=== PATIENT | female | born 1945 | race Caucasian/White ===

== ENCOUNTER 2016-12-11 14:30 | Outpatient (CLI) | payer MEDICARE ==
[2016-12-11 14:51] LABS: #Basophils 0.1 thou/uL (0.0-0.2); #Eosinphils 0.4 thou/uL (0.0-0.7); #Lymphocytes 3.8 thou/uL (1.20-3.40); #Monocytes 0.8 thou/uL (0.11-0.59); #Neutrophils 4.9 thou/uL (1.40-6.50); %Eosinophils 3.7 % (0.0-10.0); %Lymphocytes 37.9 % (21.0-51.0); %Monocytes 8.2 % (0.0-10.0); %Neutrophils 49.2 % (42.0-75.0); Hemoglobin 14.3 g/dL (12.0-16.0); Mean Corpuscular HGB CONC 34.1 g/dL (32.0-36.0); Mean Corpuscular Hemoglobin 31.9 pg (27.0-31.0); Mean Corpuscular Volume 93.7 fl (81.0-99.0); Mean Platelet Volume 7.7 fL (7.4-10.4); Platelet Count 306 thou/uL (130-400); RBC Distribution Width 12.2 % (11.5-14.5); Red Blood Cell (RBC) Count 4.48 mill/uL (4.20-5.40)
== END 2016-12-11 14:31 | disposition home or self-care (01) ==
LOC: MADLAB 14:30
PROVIDERS: ATTEND Internal Medicine Cardiovascular Disease
DX: I48.0 Paroxysmal atrial fibrillation (principal)
CPT/HCPCS: 36415; 85025

== ENCOUNTER 2017-08-10 11:28 | Emergency (ER) | payer OTHER, MEDICARE ==
[~2017-08-10 11:28] MED LIST: Albuterol Sulfate 2.5 mg/3 ml Neb ONE
--- NOTE | 2017-08-10 11:50 | RAD ---
ONE VIEW CHEST: COMPARISON: 03/19/17. HISTORY: Dyspnea. FINDINGS: Persistent pleural and parenchymal changes in the left hemithorax which obscure the left heart border . There is overall diminished lung volume in the left hemithorax. Compensatory mild hyperinflation in the right lung. No pneumothorax. IMPRESSION: Postsurgical changes of diminished left lung volume. Persistent opacification of left lung base. POS: [facility]
[2017-08-10] MEDS ORDERED: Albuterol Sulfate 1.25 MG/3 ML NEB ONE (11:58)
[2017-08-10] MEDS ORDERED: Furosemide 40 MG/4 ML VIAL ONE ×2 (11:58→13:44)
[2017-08-10 12:07] LABS: #Basophils 0.1 thou/uL (0.0-0.2); #Eosinphils 0.3 thou/uL (0.0-0.7); #Lymphocytes 3.5 thou/uL (1.20-3.40); #Monocytes 0.9 thou/uL (0.11-0.59); #Neutrophils 6.8 thou/uL (1.40-6.50); %Basophils 0.6 % (0.0-1.0); %Lymphocytes 30.4 % (21.0-51.0); %Monocytes 7.5 % (0.0-10.0); %Neutrophils 58.5 % (42.0-75.0); Hemoglobin 13.4 g/dL (12.0-16.0); Mean Corpuscular HGB CONC 32.9 g/dL (32.0-36.0); Mean Corpuscular Hemoglobin 31.7 pg (27.0-31.0); Mean Corpuscular Volume 96.3 fl (81.0-99.0); Mean Platelet Volume 7.7 fL (7.4-10.4); Platelet Count 272 thou/uL (130-400); RBC Distribution Width 13.4 % (11.5-14.5); Red Blood Cell (RBC) Count 4.22 mill/uL (4.20-5.40); White Blood Cell (WBC) Count 11.6 thou/uL (4.8-10.8)
[2017-08-10 12:19] LABS: INR-International Normal Ratio 1.3; PTT 30.9 SEC (22.9-36.1); Prothrombin Time 15.9 SEC (12.0-14.7)
[2017-08-10 12:21] LABS: D-Dimer Test Less than 0.27 *mcg/mL (0.27-0.43)
[2017-08-10 12:28] LABS: ALT (SGPT) 14 U/L (8-55); AST (SGOT) 13 U/L (5-34); Albumin 3.7 g/dL (3.4-4.8); Alkaline Phosphatase 92 U/L (40-150); Anion Gap 13 mmol/L (10-20); BUN (Urea Nitrogen) 20 mg/dL (9.8-20.1); Bilirubin, Total 0.5 mg/dL (0.2-1.2); CK (CPK) 36 U/L (29-168); Calc. Creatinine Clearance 0 mL/min (70-130); Calcium 9.5 mg/dL (7.8-10.44); Carbon Dioxide 27 mmol/L (23-31); Chloride 104 mmol/L (98-107); Estimated GFR-MDRD 64; Globulin 2.7 g/dL (2.4-3.5); Glucose 101 mg/dL (83-110); Potassium 4.3 mmol/L (3.5-5.1); Protein, Total 6.4 g/dL (6.0-8.3); Sodium 140 mmol/L (136-145)
[2017-08-10 12:32] LABS: Bilirubin Negative (Negative); Blood, Urine Negative (Negative); Clarity Clear (Clear); Glucose, Urine (Dipstick) Negative (Negative); Leukocyte Negative (Negative); Nitrite Negative (Negative); Protein, Urine (Dipstick) Negative (Neg-Trace); Urobilinogen 0.2 mg/dL (0.2-1.0)
[2017-08-10 12:54] LABS: CKMB 1.2 ng/mL (0-6.6); Troponin I Less than 0.010 ng/mL (< 0.028)
[2017-08-10] MEDS ORDERED: methylPREDNISolone Sod Succ/PF 125 MG/2 ML VIAL ONE (13:44)
== END 2017-08-10 14:16 | disposition home or self-care (01) ==
LOC: MADERS 11:28
DX: J81.0 Acute pulmonary edema (principal); J44.1 Chronic obstructive pulmonary disease with (acute) exacerbation; I25.10 Atherosclerotic heart disease of native coronary artery without angina pectoris; I48.91 Unspecified atrial fibrillation; I10 Essential (primary) hypertension; Z79.899 Other long term (current) drug therapy; Z79.82 Long term (current) use of aspirin
CPT/HCPCS: 71045; 80053; 81003; 82553; 83880; 84484; 85025; 85379; 85610; 85730; 93005; 96374; 96375; 96376; J1940; J2930; J7611

== ENCOUNTER 2017-09-07 10:45 | Emergency (ER) | payer MEDICARE ==
[~2017-09-07 10:45] MED LIST changes: -Albuterol Sulfate 2.5 mg/3 ml Neb ONE; +Sodium Chloride 0.9% 100 ML BAG ONE
[2017-09-07] MEDS ORDERED: Furosemide 40 MG/4 ML VIAL ONE (11:59)
[2017-09-07 12:26] LABS: #Basophils 0.1 thou/uL (0.0-0.2); #Eosinphils 0.3 thou/uL (0.0-0.7); #Lymphocytes 2.1 thou/uL (1.20-3.40); #Monocytes 0.9 thou/uL (0.11-0.59); #Neutrophils 4.7 thou/uL (1.40-6.50); %Basophils 0.9 % (0.0-1.0); %Eosinophils 3.3 % (0.0-10.0); %Lymphocytes 25.8 % (21.0-51.0); %Monocytes 11.7 % (0.0-10.0); %Neutrophils 58.2 % (42.0-75.0); Hemoglobin 12.7 g/dL (12.0-16.0); Mean Corpuscular HGB CONC 32.7 g/dL (32.0-36.0); Mean Corpuscular Hemoglobin 31.6 pg (27.0-31.0); Mean Corpuscular Volume 96.7 fl (81.0-99.0); Mean Platelet Volume 6.8 fL (7.4-10.4); Platelet Count 247 thou/uL (130-400); RBC Distribution Width 13.8 % (11.5-14.5); Red Blood Cell (RBC) Count 4.02 mill/uL (4.20-5.40)
[2017-09-07 12:33] LABS: INR-International Normal Ratio 1.3; PTT 34.5 SEC (22.9-36.1); Prothrombin Time 16.2 SEC (12.0-14.7)
--- NOTE | 2017-09-07 12:35 | RAD ---
PORTABLE AP CHEST X-RAY: 09/07/2017 HISTORY: Pneumonia. CHF. COMPARISON: 08/10/2017 FINDINGS: Again noted is generalized volume loss in the left hemithorax compared to the right. Pleural and par enchymal changes are again seen at the left lung base, which, given differences in technique, are pro bably similar to the prior exam. Pneumonia with small left pleural effusion is a possibility, althou gh findings could be related to chronic lung changes. A neoplastic process cannot be entirely exclud ed. There are post surgical changes of the left hemithorax. The right lung is clear. The cardiac s ilhouette is mostly obscured. IMPRESSION: Post surgical changes, left hemithorax, with generalized volume loss, similar to the prior study. In addition, there are overall stable pleural and parenchymal changes at the left lung base, which, aga in, may be related to an infectious process and associated left pleural effusion. Volume loss and/or chronic lung change is also a possibility. However, continued followup to ensure resolution is ramonita mmended. POS: [facility]
[2017-09-07 12:41] LABS: ALT (SGPT) 11 U/L (8-55); AST (SGOT) 11 U/L (5-34); Albumin 3.6 g/dL (3.4-4.8); Alkaline Phosphatase 85 U/L (40-150); Anion Gap 14 mmol/L (10-20); BUN (Urea Nitrogen) 19 mg/dL (9.8-20.1); Bilirubin, Total 0.6 mg/dL (0.2-1.2); CK (CPK) 22 U/L (29-168); Calc. Creatinine Clearance 0 mL/min (70-130); Calcium 9.2 mg/dL (7.8-10.44); Carbon Dioxide 28 mmol/L (23-31); Chloride 104 mmol/L (98-107); Estimated GFR-MDRD 52; Globulin 2.6 g/dL (2.4-3.5); Glucose 97 mg/dL (83-110); Potassium 4.4 mmol/L (3.5-5.1); Protein, Total 6.2 g/dL (6.0-8.3); Sodium 142 mmol/L (136-145)
[2017-09-07 12:45] LABS: CKMB 0.8 ng/mL (0-6.6); Troponin I Less than 0.010 ng/mL (< 0.028)
[2017-09-07] MEDS ORDERED: MORPHINE 10 MG/ML SYRINGE ONE (13:57)
[2017-09-07] MEDS ORDERED: Ondansetron HCl/PF 4 MG/2 ML Vial ONE (13:58)
[2017-09-07] MEDS ORDERED: D5 1/2 NS w/20 mEq KCL 1,000 ML ONE (13:58)
--- NOTE | 2017-09-07 15:32 | CT ---
CT CHEST WITHOUT CONTRAST: Date: 09/07/17 HISTORY: Abnormal chest x-ray. History of nephrectomy. Concern for mass. FINDINGS: Absence of IV contrast reduces the sensitivity of exam, particularly for evaluation of solid organs a nd bowel. There is volume loss in the left hemithorax. There is interstitial thickening in the left m id and lower lung zones. A 2.7 cm spiculated nodule is seen in the left upper lung. Focal consolidati on versus mass is seen in the posterior aspect of the left upper lung. This measures about 3.0 cm. Th ere are multiple nodules in the right lung, the largest measuring about 1.5 cm and has a slightly spi culated appearance and is located in the right upper lobe close to the apex. There is atelectatic sampson nge in the right middle lobe. A small hiatal hernia is present. There is a 1.4 cm cyst in the visualized portions of the liver. The re is atrophy of the left kidney. Vascular calcifications are present without evidence of aneurysmal dilatation of the thoracic aorta. No pleural or pericardial effusions are identified. IMPRESSION: The possibility of metastatic disease should be considered. Further evaluation with PET scanning woul d be helpful. POS: [facility]
[2017-09-07] MEDS ORDERED: cefTRIAXone\\ROCEPHIN 2 GM VIAL ONE (16:57)
== END 2017-09-07 17:16 | disposition short-term general hospital (02) ==
LOC: MADERS 10:45
DX: J18.9 Pneumonia, unspecified organism (principal); C34.92 Malignant neoplasm of unspecified part of left bronchus or lung; C34.91 Malignant neoplasm of unspecified part of right bronchus or lung; I25.10 Atherosclerotic heart disease of native coronary artery without angina pectoris; I48.91 Unspecified atrial fibrillation; I10 Essential (primary) hypertension; Z79.82 Long term (current) use of aspirin; Z79.899 Other long term (current) drug therapy; Z85.43 Personal history of malignant neoplasm of ovary
CPT/HCPCS: 36415; 51702; 71045; 71250; 80053; 82553; 83880; 84484; 85025; 85610; 85730; 87040; 87081; 87086; 87430; 93005; 94760; 96365; 96375; J0696; J1940; J2270; J2405; J7050

== ENCOUNTER 2018-12-08 14:52 | Outpatient (CLI) | payer MEDICARE ==
--- NOTE | 2018-12-08 15:25 | RAD ---
XR Chest Pa Lat STANDARD HISTORY: Chest pain COMPARISON: 11/30/2018 FINDINGS: Postoperative changes and volume loss in the left hemithorax is stable. There is mediastina l shift to the left. The right lung is well-aerated with stable chronic changes in the right upper lung. IMPRESSION: Stable exam. No acute process.
[2018-12-08 16:23] LABS: Anion Gap 14 mmol/L (10-20); BUN (Urea Nitrogen) 24 mg/dL (9.8-20.1); Calc. Creatinine Clearance 0 mL/min (70-130); Calcium 9.7 mg/dL (7.8-10.44); Carbon Dioxide 26 mmol/L (23-31); Chloride 103 mmol/L (98-107); Estimated GFR-MDRD 26; Glucose 112 mg/dL (83-110); Magnesium 1.3 mg/dL (1.6-2.6); Sodium 139 mmol/L (136-145)
== END 2018-12-08 14:53 | disposition home or self-care (01) ==
LOC: MADLABBHPM 14:52
PROVIDERS: ATTEND Family Medicine
DX: J44.9 Chronic obstructive pulmonary disease, unspecified (principal); E83.42 Hypomagnesemia; N18.3 Chronic kidney disease, stage 3 (moderate); Z85.118 Personal history of other malignant neoplasm of bronchus and lung
CPT/HCPCS: 36415; 71046; 80048; 83735